=== PATIENT | male | born 1995 | race African-American/Black ===

== ENCOUNTER 2022-08-24 13:30 | Emergency (ER) | payer OTHER, SELFPAY ==
[2022-08-24 14:04] VITALS: BP 137/76; PULSE 65; RESP 18; TEMP 36.7; O2SAT 100; BMI 32.5
--- NOTE | 2022-08-24 14:06 | ED.GENADULT ---
HPI - General Adult General Chief complaint: Chest Pain Stated complaint: chest pain Time Seen by Provider: 08/24/22 16:37 Source: patient, RN notes reviewed and old records reviewed Mode of arrival: ambulatory Limitations: no limitations History of Present Illness HPI narrative: 27-year-old male who denies any past medical history presents for evaluation of chest pain He reports that he has on and off chest pain/chest tightness for the last 7 months He reports that when it happens he feels that his heart is racing and he feels short of breath He describes the pain as tightness Denies any history of cardiac disease Patient reports that he had movement [place] next month and has had increased stress related to that The patient states that as a child he was taking Zoloft for anxiety but he stopped because he felt he was self medicating with marijuana Patient reports that he stopped smoking marijuana several months ago Related Data Previous Rx's Medication Instructions Recorded hydroxyzine HCl 25 mg tablet 25 mg PO TID PRN anxiety #20 tabs 08/24/22 Allergies Allergy/AdvReac Type Severity Reaction Status Date / Time grapefruit Allergy Anaphylaxis Verified 08/24/22 14:04 mayonnaise Allergy Swelling Verified 08/24/22 14:04 mustard Allergy Swelling Verified 08/24/22 14:04 Penicillins Allergy Rash Verified 08/24/22 14:04 Review of Systems Constitutional: Constitutional: Reports as per HPI, Denies chills, Denies fatigue, Denies fever(s) and Denies headache(s) ENT: Denies headache(s) Cardiovascular: Cardiovascular: Reports chest pain, Reports palpitations and Reports dyspnea Respiratory: Respiratory: Denies cough and Reports dyspnea Gastrointestinal: Gastrointestinal: Denies abdominal pain, Denies constipation and Denies vomiting Genitourinary: Genitourinary: Denies difficulty urinating and Denies dysuria Neurologic: Denies headache(s) and Denies focal weakness Psychiatric: Psychiatric: Reports anxiety Endocrine: Endocrine: Denies fatigue and Reports palpitations PMFSH Social History Social History Alcohol intake: never Smoked in Last 30 Days: No Use of substances other than those prescribed or required for medical reasons: No Advance Directives: No Advance Directives Information Provided: No Physical Exam ED Vital Signs: Vital Signs - 24 hr 08/24/22 14:04 08/24/22 14:22 Temperature 98.0 F Pulse Rate 65 61 Respiratory Rate 18 20 Blood Pressure 137/76 118/72 Pulse Oximetry 100 98 Oxygen Delivery Method Room Air Room Air BMI result Body Mass Index 32.5 Const General: healthy appearing, comfortable, no acute distress, alert and awake Nutritional Appearance: well nourished Orientation/consciousness: patient oriented x3 HENMT Head: Yes normocephalic and Yes atraumatic Eyes Eyelids: Yes eyelids normal Conjunctivae: conjunctivae normal Sclerae: sclerae normal Corneas: corneas normal Pupils: Equal, round and reactive pupils present EOM: EOMs intact bilaterally Neck Neck: Yes full ROM Chest Chest palpation & inspection: normal inspection of the chest Resp Effort & Inspection: normal respiratory effort, able to speak in complete sentences, no audible wheezes and not labored Auscultation: clear to auscultation bilaterally Cardio Rate: regular rate Rhythm: regular rhythm GI Inspection: No distended Palpation (GI): Soft to palpation, not firm, nontender, no guarding and not rigid Auscultation: normoactive bowel sounds Skin General skin exam: no rashes or lesions noted and elasticity normal Neuro General: patient oriented x3 Cranial nerves: Yes CN's II-XII intact bilaterally, Yes Equal, round and reactive pupils present and Yes Bilaterally intact EOM present Cognition (Neuro): normal cognition Extrem Other: Moving all extremities well without any obvious deformities Course Course Course Narrative: RME: 27 yold male presents to the ED for chest pain for 7 months with hot flashes. NO SOB, pluerisy, leg swelling, calf pain, or recent long travel . labs and EKG orderd Medical Decision Making Medical Decision Making [facility] Narrative: 27-year-old male who denies any past medical history presents for evaluation of chest pain. His onset was 7 months ago. This correlates to increased stress related to an upcoming move out of state. His cardiac workup was negative including his troponin, EKG and chest x-ray. No reason to repeat troponin as the patient's chest pain started 7 months ago. He is also currently asymptomatic. Patient's symptoms most likely related to anxiety, heart score of 1. He is stable for discharge Differential Diagnosis Differential Diagnoses: The differential diagnosis associated with the presentation includes Chest pain Anxiety Costochondritis Stress ACS less likely Lab Data [facility] Lab Attestation statement: I reviewed the patient's lab results. (No leukocytosis, no anemia, normal electrolytes, negative troponin) 08/24/22 14:33 08/24/22 14:33 Labs: Lab Results 08/24/22 08/24/22 08/24/22 Range/Units 14:33 14:33 14:33 WBC 5.7 (4.8-10.8) X10*3/uL RBC 5.25 (4.60-5.80) X10*6/uL Hgb 14.6 (14.0-18.0) g/dl Hct 45.0 (42.0-52.0) % MCV 85.7 (80.0-98.0) fL MCH 27.8 (27.0-33.0) pg MCHC 32.4 (31.0-36.0) g/dl RDW 13.7 (11.0-16.0) % Plt Count 274 (160-400) X10*3/uL MPV 10.8 (9.4-12.4) fL Immature Gran % (Auto) 0.0 (0.0-0.4) % Neut % (Auto) 56.8 (45-73) % Lymph % (Auto) 31.0 (20-40) % [place] % (Auto) 8.4 (2-11) % Eos % (Auto) 3.1 (0-4) % Baso % (Auto) 0.7 (0-2) % Lymph # (Auto) 1.8 (1.2-4.9) X10*3/uL [place] # (Auto) 0.5 (0.1-1.2) X10*3/uL Eos # (Auto) 0.2 (0.0-0.4) X10*3/uL Baso # (Auto) 0.0 (0.0-0.2) X10*3/uL Abs Immat Gran (auto) 0.00 (0.00-0.03) X10*3/uL Absolute Neuts (auto) 3.3 (2.0-8.3) x10*3/uL Absolute Nucleated RBC 0.000 (0.0-0.012) X10*3/uL Nucleated RBC % (auto) 0.0 (0.0-0.2) /100WBC PT 10.2 (10.0-13.1) SEC INR 0.9 (0.9-1.1) APTT 33.3 (26.0-36.4) SEC Sodium 136 (135-145) mmol/L Potassium 4.2 (3.3-5.1) mmol/L Chloride 107 (96-108) mmol/L Carbon Dioxide 22 (22-29) mmol/L Anion Gap 11 L (12-20) BUN 7 L (9-16) mg/dL Creatinine 1.07 (0.5-1.4) mg/dL Estim Creat Clear Calc 129.8 Estimated GFR > 60 Random Glucose 88 (60-115) mg/dL Calcium 9.5 (8.4-10.2) mg/dL Total Bilirubin 0.5 (0.0-1.0) mg/dL AST 24 (5-37) U/L ALT 21 (0-40) U/L Alkaline Phosphatase 86 (39-117) U/L Troponin I High Sens (<3.5-35.0) ng/L B-Natriuretic Peptide (<100) pg/mL Total Protein 7.5 (6.5-8.0) g/dL Albumin 4.2 (3.5-5.0) g/dL 08/24/22 08/24/22 Range/Units 14:33 14:33 WBC (4.8-10.8) X10*3/uL RBC (4.60-5.80) X10*6/uL Hgb (14.0-18.0) g/dl Hct (42.0-52.0) % MCV (80.0-98.0) fL MCH (27.0-33.0) pg MCHC (31.0-36.0) g/dl RDW (11.0-16.0) % Plt Count (160-400) X10*3/uL MPV (9.4-12.4) fL Immature Gran % (Auto) (0.0-0.4) % Neut % (Auto) (45-73) % Lymph % (Auto) (20-40) % [place] % (Auto) (2-11) % Eos % (Auto) (0-4) % Baso % (Auto) (0-2) % Lymph # (Auto) (1.2-4.9) X10*3/uL [place] # (Auto) (0.1-1.2) X10*3/uL Eos # (Auto) (0.0-0.4) X10*3/uL Baso # (Auto) (0.0-0.2) X10*3/uL Abs Immat Gran (auto) (0.00-0.03) X10*3/uL Absolute Neuts (auto) (2.0-8.3) x10*3/uL Absolute Nucleated RBC (0.0-0.012) X10*3/uL Nucleated RBC % (auto) (0.0-0.2) /100WBC PT (10.0-13.1) SEC INR (0.9-1.1) APTT (26.0-36.4) SEC Sodium (135-145) mmol/L Potassium (3.3-5.1) mmol/L Chloride (96-108) mmol/L Carbon Dioxide (22-29) mmol/L Anion Gap (12-20) BUN (9-16) mg/dL Creatinine (0.5-1.4) mg/dL Estim Creat Clear Calc Estimated GFR Random Glucose (60-115) mg/dL Calcium (8.4-10.2) mg/dL Total Bilirubin (0.0-1.0) mg/dL AST (5-37) U/L ALT (0-40) U/L Alkaline Phosphatase (39-117) U/L Troponin I High Sens < 2.7 (<3.5-35.0) ng/L B-Natriuretic Peptide < 10 (<100) pg/mL Total Protein (6.5-8.0) g/dL Albumin (3.5-5.0) g/dL Independent Interpretation I performed an independent interpretation of an: EKG (Sinus rhythm rate of 70 beats per minute. No ST segment changes, no ectopy or arrhythmia.) and Plain X-Ray (no acute disease on one view chest x-ray) Discharge Plan Discharge Clinical Impression: Chest pain, Anxiety Patient Disposition: Home, Self-Care Instructions: Anxiety (ED) Additional Instructions: Your workup in the emergency department today was reassuring. Her this includes her blood work, chest x-ray, EKG Your pain is most likely related to anxiety and stress You may use hydroxyzine as needed for anxiety This may make you sleepy, the [address] taking Follow-up with your primary doctor Prescriptions: New hydroxyzine HCl 25 mg tablet 25 mg PO TID PRN (Reason: anxiety) Qty: 20 0RF Interventions: ED Discharge Assessment Last Done: 08/24/22 17:07 Discharge Date/Time: 08/24/22 17:08
[2022-08-24 14:22] VITALS: BP 118/72; PULSE 61; RESP 20; O2SAT 98
[2022-08-24 15:04] VITALS: PULSE 65
--- NOTE | 2022-08-24 15:11 | PC.NURSE ---
pt axox4, partner at bedside. pt states chest pain/heart palpitations started today 0400, similar to previous episodes; sx intermittent. VSS, NSR on monitor, sats 98% on RA. skin color WNL; no diaphoresis/visible distress at this time. awaiting further orders, pt states understanding plan of care, denies any questions at this time.
== END 2022-08-24 17:08 | disposition home or self-care (01) ==
PROVIDERS: Emergency Provider Emergency Medicine Emergency Medical Services
DX: R07.9 Chest pain, unspecified (principal); F41.9 Anxiety disorder, unspecified
CPT/HCPCS: 36415; 71045; 80053; 83880; 84484; 85025; 85610; 85730; 93005; 99283; 99285

== ENCOUNTER 2024-07-27 12:54 | Outpatient (AMB) | payer OTHER, SELFPAY ==
[2024-07-27 13:06] VITALS: BP 136/80; PULSE 79; RESP 18; TEMP 36.6; O2SAT 98; BMI 33.5
--- NOTE | 2024-07-27 13:06 | MHC.PC.OV ---
Vital Signs 07/27/24 13:06 Height 6 ft Weight 247 lb 6.4 oz BMI 33.5 BP 136/80 Blood Pressure Location Lt brachial Position Sitting Respiration 18 Pulse 79 Pulse Source Pulse Oximeter Temp 97.8 F Temp Source Oral Pulse Oximetry (%) 98 Oxygen Delivery Method Room Air Intake Visit Reasons: establish care Intake Note: Patient is a new patient here to establish care. Transferring care from [facility] in [place], [place]. Medical records have not been requested and have not been received. [employer] Dispatcher Required: No Accompanied by: Spouse Allergies grapefruit Allergy (Verified 07/27/24 13:26) Anaphylaxis mayonnaise Allergy (Verified 07/27/24 13:26) Swelling mustard Allergy (Verified 07/27/24 13:26) Swelling Penicillins Allergy (Verified 07/27/24 13:26) Rash Medication List - Last Reconciled 07/27/24 by PETE Edwards No Known Home Meds Tobacco use date assessed: 07/27/24 Dental Screening Dental Screen Date: 07/27/24 Did you have a dental visit in the last 12 months?: No Did you have a dental problem in the last 6 months where you did not have access to dental care?: No Was dental information given to patient?: No HPI establish care HPI Details Last visit: [facility] in [place], [place], 1.5 year ago Last PE:2021 Specialist: cardiology -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 Reports that his salt intake is minimum because it gives him heart palpitation as well Will order a 5 day holter to see if we could capture his heart rhythm during these palpitations Reports ER visit at [facility] about a year and half ago-He thought he was having a heart attack at time but turned out to be negative. He is not sure what the findings were. Will request the records. [facility] Medical History (Updated 08/13/24 @ 19:42 by PETE Edwards) Anxiety Eczema Palpitations Congenital heart disease, adult Surgical History Hx of anterior cruciate ligament surgery Family History (Updated 08/13/24 @ 19:46 by PETE Edwards) Father Heart disease Hypercholesteremia Hypertension Gout Pre-diabetes History of open heart surgery Acute arthritis Congenital heart disease, adult Mother Gout Heart disease Hypercholesteremia Hypertension Pre-diabetes Psoriasis Color blind Social History Household Members: Family Household Members Other:: Spouse and son Housing: House Alcohol intake: never Patient Tobacco Use Status: Never used Tobacco e-Cigarette/Vaping Use: Never Used service: No Current occupational status: employed 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 1. Little interest or pleasure in doing things: not at all 2. Feeling down, depressed, or hopeless: not at all 3. Trouble falling or staying asleep, or sleeping too much: not at all 4. Feeling tired or having little energy: not at all 5. Poor appetite or overeating: nearly every day 6. Feeling bad about yourself - or that you are a failure or have let yourself or your family down: not at all 7. Trouble concentrating on things, such as reading the newspaper or watching television: not at all 8. Moving or speaking so slowly that other people could have noticed. Or the opposite - being so fidgety or restless that you have been moving around a lot more than usual: not at all 9. Thoughts that you would be better off or of hurting yourself in some way: not at all Total score: 3 Depression Screening Interpretation: Negative Depression Screening Done: Yes 65166 - PHQ-9 Billing: Yes Source: Developed by Drs. Sb Glaser, Ashely Jacobs, Kiran Bardales and colleagues, with an educational nona from [employer]. Thrive Questionnaire Date Thrive assessed: 07/27/24 I am a: Patient What is your living situation today?: I have a steady place to live Within the past 12 months, did the food you bought not last and you didn't have the money to get more?: Sometimes True Within the past 12 months, did you worry whether your food would run out before you got money to buy more?: Never true Do you have trouble paying for medicines?: Yes Do you have trouble getting transportation to medical appointments?: No Do you have trouble paying your heating and electricity bill?: No Do you have trouble taking care of your child, family member or friend?: No Do you have trouble with day-to-day activities such as bathing, preparing meals, shopping, managing finances, etc.?: No Are you currently unemployed and looking for a job?: No Are you interested in more education?: No Please select the resources that you would like help with: None Currently or been in a relationship where the following occur: I choose not to answer THRIVE Score: 1 AUDIT C Alcohol Use Questionnaire (AUDIT-C) 1. How often do you have a drink containing alcohol?: Never 2. How many drinks containing alcohol do you have on a typical day when you are drinking?: 1 or 2 3. How often do you have six or more drinks on one occasion?: Never Total Score: 0 Score Reviewed/Action Taken: No TRESSA-7 AMB Questionnaire TRESSA-7 Date TRESSA - 7 assessed: 07/27/24 Feeling nervous, anxious, or on edge: 0 = Not at all Not being able to stop or control worryin = Not at all Worrying too much about different things: 0 = Not at all Trouble relaxin = Not at all Being so restless that it is hard to sit still: 0 = Not at all Becoming easily annoyed or irritable: 0 = Not at all Feeling afraid as if something awful might happen: 0 = Not at all Total TRESSA-7 score (0-4 normal; 5-9 mild; 10-14 moderate; 15-21 severe): 0 Source: Developed by Drs. Sb Glaser, Kiran Zamora and colleagues, with an educational nona from [employer]. TRESSA-7 Assessment Billing TRESSA-7 Assessment Tool: TRESSA-7 Assessment 06262 Review of Systems Const Denies headache(s) Eyes Denies loss of vision ENT Denies vertigo, Denies dizziness, Denies headache(s) and Denies sore throat Card Denies chest pain, Reports rapid heart rate (On and off), Denies leg edema and Denies lightheadedness Resp Denies cough, Denies hemoptysis and Denies wheezing GI Denies abdominal pain, Denies melena, Denies constipation, Denies diarrhea and Denies vomiting Denies dysuria, Denies urinary frequency and Denies urinary urgency Musc Denies arthralgias, Denies joint swelling, Denies numbness and Denies tingling Skin/Breast Reports other (Eczema) Neuro Denies Abnormal speech present, Denies behavioral changes, Denies vertigo, Denies dizziness, Denies headache(s), Denies loss of vision, Denies memory loss, Denies numbness and Denies tingling Psych Reports anxiety, Denies behavioral changes, Denies depression, Denies memory loss and Denies panic attacks Pierre/Lymph Denies easy bleeding and Denies easy bruising Aller/Immun Denies wheezing Physical exam (Primary Care) Vital Signs: Last Vital Signs Temp 97.8 F 07/27/24 13:06 Pulse 79 07/27/24 13:06 Resp 18 07/27/24 13:06 BP 136/80 07/27/24 13:06 Pulse Ox 98 07/27/24 13:06 Oxygen Delivery Method Room Air 07/27/24 13:06 BMI result Body Mass Index 33.5 Tobacco/Smoking Status: Tobacco use Status Tobacco use date assessed 07/27/24 07/27/24 13:24 Patient Tobacco Use Status Never used Tobacco 07/27/24 13:24 e-Cigarette/Vaping Use Never Used 07/27/24 13:24 PHQ-9: PHQ-9 Score PHQ-9: Total score 3 08/12/24 08:14 Depression Screening Interpretation: Negative Thrive Assessment: Date of Thrive Assessment Date Thrive assessed 07/27/24 07/27/24 13:24 Currently or been in a relationship where the following occur: I choose not to answer Const General: healthy appearing, no acute distress, alert and awake Nutritional Appearance: well nourished Orientation/consciousness: oriented to person, oriented to place and oriented to time HENMT Ears: TM's normal bilaterally General nose exam: Normal nasal mucous membranes and turbinates present Eyes Conjunctivae: conjunctivae normal Sclerae: sclerae normal Pupils: Equal, round and reactive pupils present Neck Neck: Yes no lymphadenopathy and Yes no JVD Thyroid: Thyroid normal Carotids: no bruits Resp Effort & Inspection: normal respiratory effort and not tachypneic Auscultation: no crackles, no rales, no rhonchi and no wheezes Cardio Rate: regular rate Rhythm: regular rhythm Heart sounds: no murmurs and normal S1 and S2 GI Palpation (GI): Soft to palpation, nontender, no hepatomegaly and no splenomegaly Auscultation: normal bowel sounds Skin General skin exam: no rashes or lesions noted and dry skin Neuro General: oriented to person, oriented to place and oriented to time Cranial nerves: Yes Equal, round and reactive pupils present Speech: No Abnormal speech present Gait exam (Neuro): Normal gait present Motor exam (neuro): no tremor noted Extrem Right upper extremity: full ROM Left upper extremity: full ROM Right lower extremity: full ROM; no edema Left lower extremity: full ROM; no edema Psych Mental Status: mental status grossly normal Speech and movement: Normal speech and movement present Affect: normal affect Attitude: cooperative Thought process: Normal thought process present Coding Level of Care Code New Pt Level 4 (00883) Diagnoses Congenital heart disease, adult Q24.9 Palpitations R00.2 Obesity (BMI 30-39.9) E66.9 Anxiety F41.9 Additional Codes TRESSA-7 Assessment Billing - TRESSA-7 Assessment Tool: TRESSA-7 Assessment 87806 ([id number]) PHQ-9 - 42448 - PHQ-9 Billing: Yes ([id number]) Time Spent (min) 39 Assessment & Plan Assessment & Plan (1) Congenital heart disease, adult: Comment: 3 heart valves instead of 4 Code(s): Q24.9 - Congenital malformation of heart, unspecified Category: Medical Plan: Patient is unsure who shown of his heart valves were absent. Reports that this runs in his family; he was born with 3 heart valves instead of 4. In most cases, it is usually the pulmonary valve and is associated with other structural heart defects, such as tetralogy of fallow or ventricular septal defect. We will order echocardiogram to further evaluate and refer the patient to Cardiology (2) Palpitations: Code(s): R00.2 - Palpitations Category: Medical Plan: Reports recurrent heart palpitation. He has been making lifestyle modifications, like cutting out certain sweets, caffeine and other foods that he noticed caused his heart to race. We will order a 5 day Holter monitor to further evaluate (3) Obesity (BMI 30-39.9): Code(s): E66.9 - Obesity, unspecified Category: Medical Plan: He has been making lifestyle modifications. He would also like to talk to a dietitian to see what else he could implement. Dietitian/nutrition referral placed (4) Anxiety: Code(s): F41.9 - Anxiety disorder, unspecified Category: Medical Plan: Reports on and off anxiety. This is mostly controlled at this time. He was also prescribed hydroxyzine in the past which she noted increased his heart palpitation, so he discontinued this medication. No new intervention was added today. We will continue to monitor Orders: Orders TSH reflex Free T4 07/28/24 R00.2 - Palpitations, Z00.00 - Encounter for general adult medical examination without abnormal findings, E66.9 - Obesity, unspecified Magnesium 07/28/24 R00.2 - Palpitations, Z00.00 - Encounter for general adult medical examination without abnormal findings, E66.9 - Obesity, unspecified CRP High Sensitivity 07/28/24 R00.2 - Palpitations, Z00.00 - Encounter for general adult medical examination without abnormal findings, E66.9 - Obesity, unspecified ECG 12 lead EKG 07/27/24 R00.2 - Palpitations, Q24.9 - Congenital malformation of heart, unspecified ECG 7 day holter monitor 07/27/24 R00.2 - Palpitations Complete Blood Count Auto Diff 07/28/24 R00.2 - Palpitations, Z00.00 - Encounter for general adult medical examination without abnormal findings, E66.9 - Obesity, unspecified Comprehensive [place]. Panel Fast 07/28/24 R00.2 - Palpitations, Z00.00 - Encounter for general adult medical examination without abnormal findings, E66.9 - Obesity, unspecified Lipid Panel 07/28/24 R00.2 - Palpitations, Z00.00 - Encounter for general adult medical examination without abnormal findings, E66.9 - Obesity, unspecified UA CC w/rflx Micro + Cult 07/28/24 R00.2 - Palpitations, Z00.00 - Encounter for general adult medical examination without abnormal findings, E66.9 - Obesity, unspecified Vitamin D 25-OH Total 07/28/24 R00.2 - Palpitations, Z00.00 - Encounter for general adult medical examination without abnormal findings, E66.9 - Obesity, unspecified Erythrocyte Sedimentation Rate 07/28/24 R00.2 - Palpitations, Z00.00 - Encounter for general adult medical examination without abnormal findings, E66.9 - Obesity, unspecified Medications: Discontinued hydroxyzine HCl Discontinued Reason: Patient no longer taking 25 mg PO TID PRN 20 tabs 0RF anxiety
--- OUTSIDE RECORDS SUMMARY | 2024-07-27 13:17 | XMS_ITS | Data Portability ---
Author Organization [facility] Address [address] [place] [address] Assessment No assessment recorded. Plan of Treatment Reminders Order Date Submit Date Provider Last Modified By Organization Details Last Modified Time Details Appointments None record ed. Lab None record ed. Referral None record ed. Procedures None record ed. Surgeries None record ed. Imaging None record ed. Medication Orders None record ed. Patient TargetsNo targets recorded. Patient InstructionsNo instructions recorded. Reason for Referral None Reported. Procedures Surgical History Date Name Laterality Status Provider Name and Address Organization Details Recorded Time 3 [facility] Rapid 5 or 10 panel Template completed SUNIL [place] - [facility] 06/27/2022 09:11:41 3 [facility] Send Out Template NON DOT completed MARK OLMSTEAD [place] - [facility] 03/26/2022 15:21:49 Imaging Results None recorded. Procedure Notes None recorded. Medical Equipment None Reported. Vitals None Recorded Social History None recorded. Functional Status None recorded. Mental Status None recorded. Family History Nothing Reported. Medical History No medical history recorded. Past Encounters Encounter ID Performer Location Encounter Start Date Encounter Closed Date Diagnosis/Indication Diagnosis SNOMED-CT Code Diagnosis ICD10 Code Diagnosis Note [id number] [facility] [address] [facility] [address] [place] [id number] 10/21/2021 08:08:50 10/21/2021 09:19:00 [id number] JAXSON WALKER [facility] [address] [place] [address] 03/26/2022 12:58:42 03/26/2022 15:26:14 History and physical examination, pre-employment 092606298 Z02.1 [id number] Ino Teresa NP [facility] [address] [place] [address] 06/27/2022 08:27:15 06/27/2022 09:16:49 History and physical examination, occupation [id number] Z02.1 Health Concerns Section Related Observation LastModified by Organization Detai ls LastModified Time None Recorded Concern Status LastModified by Organization Details LastModified Time None Recorded Advance Directives Directive None Recorded Payers Insurance Date Sequence Insurance Name Policy Number Policy Greco Covered Member ID Greco Member ID Guarantor Name 03/26/2022 OCYANIRA Turner [id number] Kathy Turner 06/27/2022 OCYANIRA Turner [id number] Kathy Turner
== END 2024-07-27 14:15 | disposition home or self-care (01) ==
LOC: HO.HMCH 12:55
DX: R00.2 Palpitations (principal); E66.9 Obesity, unspecified; Z68.33 Body mass index [BMI] 33.0-33.9, adult; F41.9 Anxiety disorder, unspecified; Q24.9 Congenital malformation of heart, unspecified

== ENCOUNTER → 2024-07-27 12:54 | Outpatient (BNVA) | payer OTHER, SELFPAY | DX: R00.2 Palpitations (principal); L30.9 Dermatitis, unspecified; F41.9 Anxiety disorder, unspecified; E66.9 Obesity, unspecified; Q24.9 Congenital malformation of heart, unspecified; Z68.33 Body mass index [BMI] 33.0-33.9, adult | CPT/HCPCS: 96127; 99202 ==

== ENCOUNTER 2024-07-28 09:51 | Outpatient (REF) | payer OTHER, SELFPAY ==
[2024-07-28 13:31] LABS: MANUAL DIFF FLAG NO
[2024-07-28 13:41] LABS: Basophils Absolute Auto 0.1 X10*3/uL (0.0-0.2); Basophils Percent Auto 0.9 % (0-2); Eosinophils Absolute Auto 0.2 X10*3/uL (0.0-0.4); Eosinophils Percent Auto 2.7 % (0-4); Hemoglobin 14.6 g/dl (14.0-18.0); Imm Gran Abs Auto 0.02 X10*3/uL (0.00-0.03); Imm Gran Pct Auto 0.4 % (0.0-0.4); Lymphocytes Absolute Auto 2.3 X10*3/uL (1.2-4.9); Lymphocytes Percent Auto 42.2 % (20-40); Mean Corpuscular HGB Conc 32.4 g/dl (31.0-36.0); Mean Corpuscular Hemoglobin 27.5 pg (27.0-33.0); Mean Corpuscular Volume 84.7 fL (80.0-98.0); Mean Platelet Volume 10.9 fL (9.4-12.4); Monocytes Absolute Auto 0.5 X10*3/uL (0.1-1.2); Monocytes Percent Auto 9.2 % (2-11); Neutrophils Absolute Auto 2.5 x10*3/uL (2.0-8.3); Neutrophils Percent Auto 44.6 % (45-73); Platelet Count 288 X10*3/uL (160-400); Red Blood Count 5.31 X10*6/uL (4.60-5.80); Red Cell Distribution Width 14.5 % (11.0-16.0); White Blood Count 5.5 X10*3/uL (4.8-10.8)
[2024-07-28 14:19] LABS: Erythrocyte Sedimentation Rate 4 MM/HR (0-15)
[2024-07-28 14:56] LABS: Alanine Aminotransferase 42 U/L (0-40); Albumin Level 4.2 g/dL (3.5-5.0); Alkaline Phosphatase 73 U/L (39-117); Anion Gap 10 (12-20); Aspartate Amino Transferase 32 U/L (5-37); Bilirubin Total 0.4 mg/dL (0.0-1.0); Blood Urea Nitrogen 13 mg/dL (9-16); Calcium 9.5 mg/dL (8.4-10.2); Carbon Dioxide 28 mmol/L (22-29); Chloride 108 mmol/L (96-108); Cholesterol 174 mg/dL (<200); Estimated Glomerular Filt Rate > 60; Glucose Fasting 82 mg/dL (60-99); HDL Cholesterol 43 mg/dL (>40); LDL Cholesterol Calculated 120 mg/dL (<100); Sodium 141 mmol/L (135-145); Total Protein 7.3 g/dL (6.5-8.0); Triglycerides 58 mg/dL (<150)
[2024-07-28 15:16] LABS: TSH reflex Free T4 1.25 uIU/mL (0.32-4.0)
[2024-07-29 08:53] LABS: CRP High Sensitivity 1.1 mg/L
== END 2024-07-28 09:52 | disposition home or self-care (01) ==
LOC: HO.HMGCLDS 09:51
DX: Z00.00 Encounter for general adult medical examination without abnormal findings (principal); E66.9 Obesity, unspecified; R00.2 Palpitations
CPT/HCPCS: 36415; 80053; 80061; 82306; 83735; 84443; 85025; 85652; 86141

== ENCOUNTER 2024-08-17 09:53 | Outpatient (AMB) | payer OTHER, SELFPAY ==
--- NOTE | 2024-08-17 10:11 | A.OFFVIS_ITS ---
VS Expanded 08/17/24 10:12 08/17/24 10:21 Height 6 ft 6 ft Weight 251 lb 5.231 oz 251 lb BMI 34.1 34.0 Intake Visit Reasons: Obesity Allergies grapefruit Allergy (Verified 07/27/24 13:26) Anaphylaxis mayonnaise Allergy (Verified 07/27/24 13:26) Swelling mustard Allergy (Verified 07/27/24 13:26) Swelling Penicillins Allergy (Verified 07/27/24 13:26) Rash Nutrition Presentation Details: Pt presents for MNT for obesity Pt reports having gradually gained >30 lbs over the years , multiple reasons, including lack of physical activity from an injury in the past . 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), reports increase snacks Has switched to Pescatorian diet in the past 90 days and reports finding himself choosing higher fat snacks or sugary snacks for satiety food frequency eating out: 3-4 x/wk fruits: 1/d fish : 4x/wk dairy > 5 serving/d ve serving/d beverages: switching to lower sugar beverages (choosing those with no sodium physical activity : 1-2 x/week > 40 [address] walk BS Monitoring Most Recent Diabetes Results: Cholesterol, (<200) 174 mg/dL 07/28/24 HDL Cholesterol, (>40) 43 mg/dL 07/28/24 Triglycerides, (<150) 58 mg/dL 07/28/24 Creatinine, (0.5-1.4) 1.09 mg/dL 07/28/24 BUN, (9-16) 13 mg/dL 07/28/24 Sodium, (135-145) 141 mmol/L 07/28/24 Potassium, (3.3-5.1) 5.0 mmol/L 07/28/24 Chloride, (96-108) 108 mmol/L 07/28/24 Carbon Dioxide, (22-29) 28 mmol/L 07/28/24 Calcium, (8.4-10.2) 9.5 mg/dL 07/28/24 AST, (5-37) 32 U/L 07/28/24 ALT, (0-40) 42 U/L H 07/28/24 Total Protein, (6.5-8.0) 7.3 g/dL 07/28/24 Albumin, (3.5-5.0) 4.2 g/dL 07/28/24 PJL-Jnropoc-Vr.Jeor Equation Height: 6 ft Weight: 251 lb Resting Metabolic Rate: 2132.86 Calculated Activity Level: Mild Activity Calories Needed to Maintain Weight: 2932.68 Diagnosis Nutrition problem #1: excessive energy intake As related to (etiology) #1: diagnosis and physical inactivity As evidenced by (sign/symptom) #1: high BMI and weight gain (stated 30 lb wt gain in a yr) [facility] Medical History (Updated 08/13/24 @ 19:42 by PETE Edwards) Anxiety Eczema Palpitations Congenital heart disease, adult Surgical History Hx of anterior cruciate ligament surgery Family History (Updated 08/13/24 @ 19:46 by PETE Edwards) Father Heart disease Hypercholesteremia Hypertension Gout Pre-diabetes History of open heart surgery Acute arthritis Congenital heart disease, adult Mother Gout Heart disease Hypercholesteremia Hypertension Pre-diabetes Psoriasis Color blind Social History Household Members: Family Household Members Other:: Spouse and son Housing: House Alcohol intake: never Patient Tobacco Use Status: Never used Tobacco e-Cigarette/Vaping Use: Never Used service: No Current occupational status: employed 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 Cognitive needs: No Hearing needs: No Vision needs: Yes (Glasses) Assessment & Plan Assessment & Plan (1) Obesity (BMI 30-39.9): Code(s): E66.9 - Obesity, unspecified Category: Medical Plan: Wt: 114 Kg ( 09/16 ) Est kcal needs as per MSJ: 3000 (40% carb, 30% protein/fat) Est fluid needs as per 25-30 ml/d: 3400 Est prot per day as per 1 g/kg bw: 110 Recommend fiber intake : 8-10 g per day and gradually increase to 25-28 g per day for women and 35-38 g for men or as tolerated Recommend sodium intake per day : less than 2300 mg Educated patient on: ( R = reviewed V = verbalizes understanding N/R = needs review N/A = not applicable * Food sources of carbohydrate, adequate serving sizes and its role in various health conditions: R * Differences between complex carbohydrates a simple carbohydrates, role of fiber in diet: R * Lean protein sources of foods: R * Differences between types of fats and role in diet (mono on saturated fat fatty acids, saturated fatty acids, trans fats): R basic info * Food sources of sodium in salt and healthy modifications for heart health in kidney health: R V R/V * Vitamins and minerals: R V N/R * Healthy plate method concept: R * Physical activity: Benefits a precaution: R V Patient Instructions: Practice mindful eating Choose lower fat food option (including toppings added, breaded food items, keep track of your food intake goal less than 2900 micah engage in walking 1 hr 3 times/week Coding Level of Care Code Nutr Indiv Intake (34668) Diagnoses Obesity (BMI 30-39.9) E66.9 Time Spent (min) 30
[2024-08-17 10:12] VITALS: BMI 34.1
[2024-08-30 20:00] VITALS: BMI 34.0
== END 2024-08-17 11:24 | disposition home or self-care (01) ==
LOC: HO.ENCR 09:54
PROVIDERS: Visit Provider Dietitian, Registered
DX: E66.9 Obesity, unspecified (principal)

== ENCOUNTER → 2024-08-17 09:53 | Outpatient (BNVA) | payer OTHER, SELFPAY | PROVIDERS: Visit Provider Dietitian, Registered | DX: Z71.3 Dietary counseling and surveillance (principal); E66.9 Obesity, unspecified | CPT/HCPCS: 97802 ==